=== PATIENT | male | born 2000 | race Caucasian/White ===

== ENCOUNTER 2018-11-25 07:42 | Emergency (ER) | payer BC, OTHER ==
[2018-11-25] MEDS ORDERED: Lidocaine 1% (PF) 30 ML VIAL ONE ×2 (08:16→08:18)
== END 2018-11-25 10:59 | disposition home or self-care (01) ==
LOC: ERS 07:42
DX: K61.1 Rectal abscess (principal)
CPT/HCPCS: 46040; J2001